=== PATIENT | female | born 1930 | race Caucasian/White ===

== ENCOUNTER 2018-03-05 09:56 | Emergency (ER) | payer MEDICARE, BC ==
[2018-03-05] MEDS ORDERED: SODIUM CHLORIDE 0.9% FLUSH 10 ML SOL IV PRN (10:44)
[2018-03-05 10:53] LABS: BASOPHILS % (AUTO) 0 % (0-3); EOSINOPHILS % (AUTO) 0 % (0-9); HEMATOCRIT 38 % (35-47); HEMOGLOBIN 12.3 gm/dl (12.0-15.5); LYMPHOCYTES % (AUTO) 5.3 % (10-50); MEAN CORPUSCULAR HGB CONC 32.5 gm/dl (32.0-36.0); MEAN CORPUSCULAR VOLUME 89 fL (81-99); MONOCYTES % (AUTO) 8.2 % (0-12); NEUTROPHILS % (AUTO) 85.6 % (37-80)
[2018-03-05 11:08] LABS: ALKALINE PHOSPHATASE 155 IU/L (46-116); ALT 16 IU/L (14-63); AST 21 IU/L (15-37); BILIRUBIN,TOTAL 0.7 mg/dl (0.2-1.0); BLOOD UREA NITROGEN 15 mg/dl (7-18); CALCIUM 9.7 mg/dl (8.5-10.1); CARBON DIOXIDE 30.4 mEq/L (21-32); CHLORIDE 92 mMol/L (98-107); CREATININE 0.88 mg/dl (0.60-1.00); GLUCOSE 159 mg/dl (74-106); POTASSIUM 3.9 mMol/L (3.5-5.1); SODIUM 129 mMol/L (136-145); TOTAL PROTEIN 7.4 gm/dl (6.4-8.2); TROP I < 0.017 ng/ml (0.000-0.056)
[2018-03-05] MEDS ORDERED: SODIUM CHLORIDE 0.9% 500 ML SOL IV ONE (11:45)
[2018-03-05 15:24] VITALS: TEMP 96.8
[2018-03-05 15:25] VITALS: BP 166/99; PULSE 79; RESP 18; O2SAT 97
== END 2018-03-05 15:40 | disposition home or self-care (01) | DRG 376 ==
LOC: ED 09:56
DX: C18.9 Malignant neoplasm of colon, unspecified (principal); R93.5 Abnormal findings on diagnostic imaging of other abdominal regions, including retroperitoneum; R91.8 Other nonspecific abnormal finding of lung field; E86.9 Volume depletion, unspecified
CPT/HCPCS: 71260; 74177; 80053; 84300; 84484; 85025; 93005; 96365; 99284; 99285; Q9967